=== PATIENT | female | born 1980 | race Caucasian/White ===

== ENCOUNTER 2016-12-06 07:00 | Observation (INO) | payer BC, OTHER ==
[~2016-12-06] VITALS: Ht 167.6 cm; Wt 112.0 kg
== END 2016-12-06 11:25 | disposition home or self-care (01) ==
LOC: SPU 07:00
PROVIDERS: ADMIT Obstetrics & Gynecology; ATTEND Obstetrics & Gynecology
DX: O26.853 Spotting complicating pregnancy, third trimester (principal); Z3A.31 31 weeks gestation of pregnancy
CPT/HCPCS: 76805; 81002; 82962; G0378